=== PATIENT | female | born 1940 | race Caucasian/White ===

== ENCOUNTER 2017-05-25 10:35 | Inpatient (IN) ==
[2017-05-25] MEDS ORDERED: KETOROLAC 30 MG/1 ML VIAL IV STA (11:22)
[2017-05-25] MEDS ORDERED: METOPROLOL TARTRATE 5 MG/5 ML VIAL IV STA (11:22)
[2017-05-25] MEDS ORDERED: ASPIRIN 325 MG TABLET PO STA (11:22)
[2017-05-25] MEDS ORDERED: ONDANSETRON 4 MG/2 ML VIAL IV STA (11:22)
[2017-05-25] MEDS ORDERED: ONDANSETRON 4 MG/2 ML VIAL ONE (11:37)
[2017-05-25] MEDS ORDERED: KETOROLAC 30 MG/1 ML VIAL ONE (11:38)
[2017-05-25] MEDS ORDERED: METOPROLOL TARTRATE 5 MG/5 ML VIAL IV ONE (11:38)
[2017-05-25] MEDS ORDERED: ASPIRIN 325 MG TABLET ONE (11:38)
[2017-05-25 12:06] LABS: Basophils % 0.2 % (0.0-0.8); Eosinophils % 0.1 % (0.00-10.9); Hematocrit 44.1 VOL% (35.7-47.0); Immature Granulocytes % 0.5 %; Immature Granulocytes Absolute 0.09 #; Lymphocytes # 1.2 10*3/uL (1.4-4.0); Lymphocytes % 6.3 % (21.3-54.2); Mean Corpuscular Hemoglobin 31 PG (27-34); Mean Corpuscular Volume 90.2 FL (87-102); Mean Platelet Volume 11.4 FL (9.6-12.0); Monocytes # 1.1 10*3/uL (0.11-0.8); Neutrophils # 16.5 10*3/uL (1.4-7.4); Neutrophils % 86.9 % (38.7-73.9); Platelet Count 217 T/CUMM (130-400); Red Blood Count 4.89 MC/CUMM (3.8-5.5); Red Cell Distribution Width 13.5 % (9.3-17.3); White Blood Count 18.9 T/CUMM (4-12)
[2017-05-25 12:18] LABS: PT Patient Result 10.8 SECS
[2017-05-25] MEDS ORDERED: LEVOFLOXACIN INJ 750 MG in PREMIX 1 EACH IV STA (12:25)
[2017-05-25] MEDS ORDERED: LEVOFLOXACIN INJ 150 ML IV ONE (12:26)
[2017-05-25 12:44] LABS: Alanine Aminotransferase 27 U/L (13-56); Albumin 3.4 G/DL (3.4-5.0); Alkaline Phosphatase 105 U/L (45-117); Aspartate Amino Transferase 27 U/L (0-37); Blood Urea Nitrogen 14 MG/DL (7-18); Calcium 9.2 MG/DL (8.5-10.1); Glucose 262 MG/DL (74-106); Osmolality,Calculated 267.9 MOS/KG (273-304); Potassium 3.9 MMOL/L (3.5-5.1); Sodium 129 MMOL/L (136-145); Total Protein 7.8 G/DL (6.4-8.3); Troponin I Only < 0.015 NG/ML (0.00-0.045)
[2017-05-25 13:11] LABS: Apearance,Urine CLEAR (Clear); Bilirubin,Urine Negative (Negative); Blood, Urine Negative (Negative); Glucose,Urine (UA) >=500 mg/dL (Negative); Ketones,Urine Negative (Negative); Nitrite,Urine Negative (Negative); Protein,Urine >=500 MG/DL; RBC,Urine 1 /HPF (0-4); Squamous Epithelial Cell,Urine Occasional /HPF (0-10); Urine Color Yellow (Yellow); Urine Specific Gravity 1.016 (1.001-1.035); WBC,Urine 2 /HPF (0-6)
[2017-05-25] MEDS ORDERED: ACETAMINOPHEN 325 MG TABLET PO PRN (13:46)
[2017-05-25] MEDS ORDERED: ONDANSETRON 4 MG/2 ML VIAL IV PRN (13:46)
[2017-05-25] MEDS ORDERED: SENNA 8.6 MG TABLET PO PRN (13:49)
[2017-05-25] MEDS ORDERED: DEXTROSE 50% 25 GM/50 ML VIAL IV PRN (13:52)
[2017-05-25] MEDS ORDERED: GLUCAGON 1 MG VIAL IM PRN (13:52)
[2017-05-25] MEDS: INSULIN REGULAR 100 UNIT/ML SUBCUT SCH ×2 (16:17→21:25)
[2017-05-25] MEDS: metFORMIN 850 MG TABLET PO SCH (16:40)
[2017-05-25] MEDS: SODIUM CHLORIDE 0.9% 1,000 ML IV SCH (16:40)
[2017-05-25] MEDS: guaiFENesin/DM ER 600-30 MG TABLET PO SCH ×2 (16:40→21:21)
[2017-05-25] MEDS: MAGNESIUM OXIDE 400 MG TABLET PO SCH ×2 (16:41→21:21)
[2017-05-25] MEDS ORDERED: ZALEPLON 5 MG CAPSULE PO SCH (21:00)
[2017-05-25] MEDS ORDERED: ENOXAPARIN 40 MG/0.4 ML SYRINGE SUBCUT SCH (21:00)
[2017-05-25] MEDS: DILTIAZEM CD 120 MG CAPSULE PO SCH (21:21)
[2017-05-25] MEDS: METOPROLOL TARTRATE 50 MG TABLET PO SCH (21:23)
[2017-05-26] MEDS: SODIUM CHLORIDE 0.9% 1,000 ML IV SCH (01:28)
[2017-05-26 05:27] LABS: Basophils % 0.3 % (0.0-0.8); Eosinophils # 0.3 10*3/uL (0.0-0.87); Eosinophils % 2.2 % (0.00-10.9); Hematocrit 38.9 VOL% (35.7-47.0); Hemoglobin 13.1 GM/DL (12.0-16.0); Immature Granulocytes % 0.5 %; Immature Granulocytes Absolute 0.08 #; Lymphocytes # 2.3 10*3/uL (1.4-4.0); Mean Corpuscular HGB Conc 33.7 GM/DL (32-36); Mean Corpuscular Hemoglobin 30 PG (27-34); Mean Corpuscular Volume 89.8 FL (87-102); Mean Platelet Volume 11.8 FL (9.6-12.0); Monocytes # 1.2 10*3/uL (0.11-0.8); Monocytes % 7.8 % (1.7-12.7); Neutrophils # 11.3 10*3/uL (1.4-7.4); Neutrophils % 74.2 % (38.7-73.9); Platelet Count 205 T/CUMM (130-400); Red Blood Count 4.33 MC/CUMM (3.8-5.5); Red Cell Distribution Width 13.6 % (9.3-17.3); White Blood Count 15.2 T/CUMM (4-12)
[2017-05-26 05:58] LABS: Albumin 2.8 G/DL (3.4-5.0); Bilirubin,Total 0.6 MG/DL (0.2-1.0); Calcium 8.2 MG/DL (8.5-10.1); Total Protein 6.4 G/DL (6.4-8.3)
[2017-05-26 05:59] LABS: Osmolality,Calculated 267.4 MOS/KG (273-304); Potassium 3.9 MMOL/L (3.5-5.1)
[2017-05-26] MEDS: INSULIN REGULAR 100 UNIT/ML SUBCUT SCH (07:57)
[2017-05-26 08:47] VITALS: BP 151/81
[2017-05-26] MEDS ORDERED: POTASSIUM CHLORIDE 10 MEQ TABLET PO SCH (09:00)
[2017-05-26] MEDS ORDERED: LACTOBACILLUS ACIDOPHILUS/BULGARICUS CAPLET PO SCH (09:00)
[2017-05-26] MEDS ORDERED: ESCITALOPRAM 10 MG TABLET PO SCH (09:00)
[2017-05-26] MEDS ORDERED: VALSARTAN 160 MG TABLET PO SCH (09:00)
[2017-05-26] MEDS ORDERED: ASCORBIC ACID 500 MG TABLET PO SCH (09:00)
[2017-05-26] MEDS ORDERED: SILDENAFIL 20 MG TABLET PO SCH ×2 (09:00)
[2017-05-26] MEDS ORDERED: OMEGA 3 ACID ETHYL ESTERS 1 GM CAPSULE PO SCH (09:00)
[2017-05-26] MEDS ORDERED: hydroCHLOROthiazide 12.5 MG CAPSULE PO SCH (09:00)
[2017-05-26] MEDS ORDERED: NON-FORMULARY MEDICATION (Cinnamon Bark [Cinnamon] 1,000 MG) PO SCH (09:00)
[2017-05-26] MEDS ORDERED: [UNRECOGNIZED DRUG - REMARK] PO SCH (09:00)
[2017-05-26] MEDS ORDERED: FERROUS SULFATE 325 MG TABLET PO SCH (09:00)
[2017-05-26] MEDS ORDERED: MULTIVITAMIN (CENTRUM) TABLET PO SCH (09:00)
[2017-05-26] MEDS ORDERED: CYANOCOBALAMIN 5000 MCG PO SCH (09:00)
[2017-05-26] MEDS ORDERED: PANTOPRAZOLE 40 MG TABLET PO SCH (09:00)
[2017-05-26] MEDS ORDERED: BLACK CHERRY PO SCH (09:00)
[2017-05-26] MEDS ORDERED: ASPIRIN EC 325 MG TABLET PO SCH (09:00)
[2017-05-26] MEDS ORDERED: NORTRIPTYLINE 25 MG CAPSULE PO SCH (09:00)
[2017-05-26] MEDS: metFORMIN 850 MG TABLET PO SCH (09:10)
[2017-05-26] MEDS: guaiFENesin/DM ER 600-30 MG TABLET PO SCH (09:11)
[2017-05-26] MEDS: DILTIAZEM CD 120 MG CAPSULE PO SCH (09:11)
[2017-05-26] MEDS: MAGNESIUM OXIDE 400 MG TABLET PO SCH (09:11)
[2017-05-26] MEDS: METOPROLOL TARTRATE 50 MG TABLET PO SCH (09:12)
[2017-05-26] MEDS ORDERED: LEVOFLOXACIN INJ 750 MG in PREMIX 1 EACH IV SCH (13:00)
== END 2017-05-26 10:14 | disposition home or self-care (01) | DRG 871 ==
LOC: N.ED 10:35 → N.EDINP 13:46 → N.TELES 14:22
PROVIDERS: ADMIT Hospitalist; ATTEND Hospitalist